=== PATIENT | male | born 1975 | race Two or more races ===

== ENCOUNTER 2024-01-09 00:36 | Emergency (ER) | payer OTHER ==
[~2024-01-09] VITALS: Ht 177.8 cm; Wt 99.8 kg
[2024-01-09] MEDS ORDERED: PRAVASTATIN SOD40 MG PO (01:05)
[2024-01-09] MEDS ORDERED: AVAPRO300 MG PO (01:05)
[2024-01-09] MEDS ORDERED: FENOFIBRATE134 MG PO (01:05)
[2024-01-09] MEDS ORDERED: NADOLOL20 MG PO (01:08)
[2024-01-09] MEDS ORDERED: ORPHENADRINE CITRATE 30 MG/ML AMPUL IM ONE (08:45)
[2024-01-09] MEDS ORDERED: ORPHENADRINE CITRATE 30 MG/ML AMPUL ONE (08:47)
== END 2024-01-09 11:09 | disposition home or self-care (01) ==
LOC: ER 00:37
DX: M48.061 Spinal stenosis, lumbar region without neurogenic claudication (principal); M54.9 Dorsalgia, unspecified; I10 Essential (primary) hypertension